=== PATIENT | male | born 1985 | race Two or more races ===

== ENCOUNTER 2016-11-16 14:18 | Emergency (ER) | payer SELFPAY ==
[2016-11-16] MEDS ORDERED: ASPIRIN 81 MG CHEWABLE CTB PO ONE (14:24)
[2016-11-16 14:32] LABS: BASOPHILS % (AUTO) 0 % (0-3); EOSINOPHILS % (AUTO) 1 % (0-9); HEMATOCRIT 44 % (39-53); MEAN CORPUSCULAR HGB CONC 34.7 gm/dl (32.0-36.0); MEAN CORPUSCULAR VOLUME 91 fL (80-100); MONOCYTES % (AUTO) 7.2 % (0-12); NEUTROPHILS % (AUTO) 78.8 % (37-80)
[2016-11-16] MEDS ORDERED: ASPIRIN 81 MG CHEWABLE CTB ONE (14:46)
[2016-11-16] MEDS ORDERED: METOPROLOL TARTRATE 25 MG TAB PO ONE ×2 (14:48→15:55)
[2016-11-16 14:50] LABS: CALCIUM 9.2 mg/dl (8.5-10.1); GLOM FILT RATE 88 mL/min (>60); POTASSIUM 3.4 mMol/L (3.5-5.1); SODIUM 142 mMol/L (136-145)
[2016-11-16] MEDS ORDERED: METOPROLOL TARTRATE 25 MG TAB ONE ×2 (15:04→15:58)
[2016-11-16 15:37] LABS: AMPHETAMINES POSITIVE (NEGATIVE); METHADONE NEGATIVE (NEGATIVE); OPIATES(OP13) POSITIVE (NEGATIVE); OXYCODONE(OXY) NEGATIVE (NEGATIVE); PROPOXYPHENE(PPX) NEGATIVE (NEGATIVE); TRICYCLIC ANTIDEPRESSANTS NEGATIVE (NEGATIVE)
[2016-11-16] MEDS ORDERED: POTASSIUM CHLORIDE 10 MEQ TER PO ONE (15:55)
[2016-11-16] MEDS ORDERED: POTASSIUM CHLORIDE 10 MEQ TER ONE (15:58)
[2016-11-16 16:27] VITALS: TEMP 98.9
[2016-11-16 16:28] VITALS: O2SAT 96
[2016-11-16 16:29] VITALS: BP 153/94; PULSE 128; RESP 22
== END 2016-11-16 16:20 | DRG 313 ==
LOC: ED 14:18
DX: R07.89 Other chest pain (principal); F19.10 Other psychoactive substance abuse, uncomplicated
CPT/HCPCS: 71010; 80048; 80305; 84484; 85025; 93005; 99284